=== PATIENT | male | born 1970 | race Caucasian/White ===

== ENCOUNTER → 2016-09-09 | Outpatient (CLI) | payer MEDICAID ==
[2016-09-09 11:29] LABS: Appearance,Urine Clear (Clear); Bilirubin,Urine Negative (Negative); Glucose,Urine (UA) Negative (Negative); Ketones,Urine Negative (Negative); Leukocyte Esterase,Urine Negative (Negative); Nitrite,Urine Negative (Negative); Protein,Urine Negative (Negative); Specific Gravity,Urine 1.017 (1.001-1.035); UA Billing (MACRO vs. MICRO) CHEM; Urobilinogen,Urine <2.0 mg/dL (<2.0)
[2016-09-09 11:43] LABS: Basophils % (A) 1 %; CH 32.2; CHCM 33.8; Eosinophils # (A) 0.1 k/uL (0-0.7); Eosinophils % (A) 2 %; HCT 48.6 % (39.0-53.0); HDW 2.55; Luc # (Auto) 0.14; Luc % (Auto) 4; Lymphocytes % (A) 30 %; MCH 31.4 pg (25.0-35.0); MCHC 32.9 g/dL (31.0-37.0); MCV 95.7 fL (80.0-100.0); Mean Platelet Volume 6.6; Monocytes # (A) 0.3 k/uL (0-1.0); Monocytes % (A) 10 %; Neutrophils # (A) 1.8 k/uL (1.3-7.7); Neutrophils % (A) 53 %; RBC 5.08 m/uL (4.30-5.90); RDW 13.2 % (11.5-15.5); WBC 3.4 k/uL (3.8-10.6); WBC (Perox) 3.61
[2016-09-09 11:50] LABS: ALT 52 U/L (21-72); AST 26 U/L (17-59); Alkaline Phosphatase 62 U/L (38-126); Anion Gap 10 mmol/L; Blood Urea Nitrogen 20 mg/dL (9-20); Calcium 9.9 mg/dL (8.4-10.2); Carbon Dioxide 27 mmol/L (22-30); Chloride 106 mmol/L (98-107); Cholesterol 221 mg/dL (<200); Creatine Kinase 106 U/L (55-170); Glucose 103 mg/dL (74-99); HDL Cholesterol 61 mg/dL (40-60); Non-African American GFR(MDRD) >60 (>60 ml/min/1.73 sqM); Potassium 4.6 mmol/L (3.5-5.1); Sodium 143 mmol/L (137-145); Total Bilirubin 0.9 mg/dL (0.2-1.3); Total Protein 7.8 g/dL (6.3-8.2); Triglycerides 62 mg/dL (<150); Uric Acid 5.3 mg/dL (3.5-8.5)
[2016-09-09 12:20] LABS: Prostate Specific Antigen 0.42 ng/mL (0.00-4.00)
[2016-09-09 22:18] LABS: Hemoglobin A1C 5.3 % (4.2-6.1)
== END | disposition home or self-care (01) ==
LOC: LABWHC1 10:53
PROVIDERS: ATTEND Internal Medicine
DX: E55.9 Vitamin D deficiency, unspecified (principal); I10 Essential (primary) hypertension; E78.00 Pure hypercholesterolemia, unspecified; N40.0 Benign prostatic hyperplasia without lower urinary tract symptoms
CPT/HCPCS: 36415; 80053; 80061; 81003; 82306; 82550; 83036; 84153; 84439; 84443; 84550; 85025

== ENCOUNTER 2016-11-13 11:53 | Emergency (ER) | payer MEDICAID ==
[2016-11-13 12:10] VITALS: TEMP 97.6
[2016-11-13] MEDS ORDERED: DIPH,PERTUS(ACELL)TETVAC-LF 0.5 ML VIAL IM ONE (12:23)
--- NOTE | 2016-11-13 12:47 | ED ---
Wound/Laceration HPI - General Chief Complaint: Wound/Laceration Stated Complaint: chain saw laceration Time Seen by Provider: 11/13/16 12:19 Source: patient, RN notes reviewed Mode of arrival: ambulatory Limitations: no limitations - History of Present Illness Initial Comments: Patient is a 46-year-old male presents to the emergency room for evaluation of left thigh laceration. Patient states he was using his chainsaw and it kicked back into his left thigh. Patient states he is having 1 out of 10 pain. Patient states the area was bleeding. Patient states he is mainly here to be up -to-date on his tetanus vaccine. Patient denies numbness or tingling going down his left leg. Patient states he has 2 small lacerations over his left mid thigh. Patient denies taking blood thinners. Patient denies any other injuries. - Related Data Home Medications Medication Instructions Recorded Confirmed Fish Oil/Dha/Epa [Fish Oil 1,200 1 cap PO DAILY 11/13/16 11/13/16 mg Fish Oil] Losartan [Cozaar] 25 mg PO DAILY 11/13/16 11/13/16 Allergies Allergy/AdvReac Type Severity Reaction Status Date / Time No Known Allergies Allergy Verified 11/13/16 12:40 Review of Systems ROS Statement: Those systems with pertinent positive or pertinent negative responses have been documented in the HPI. ROS Other: All systems not noted in ROS Statement are negative. Past Medical History Past Medical History: Hypertension Additional Past Medical History / Comment(s): HX OF HEMMORIODS, BLOODY STOOLS, HX OF KIDNEY STONES History of Any Multi-Drug Resistant Organisms: None Reported Additional Past Surgical History / Comment(s): LITHOTRIPSY Past Anesthesia/Blood Transfusion Reactions: No Reported Reaction Past Psychological History: No Psychological Hx Reported Smoking Status: Never smoker Past Alcohol Use History: Occasional Past Drug Use History: None Reported General Exam - General Exam Comments Initial Comments: Sitting in exam room in no acute distress. Limitations: no limitations General appearance: alert, in no apparent distress Head exam: Present: atraumatic, normocephalic, normal inspection Eye exam: Present: normal appearance ENT exam: Present: normal exam Neck exam: Present: normal inspection Respiratory exam: Present: normal lung sounds bilaterally. Absent: respiratory distress Left Knee exam: Present: laceration (2 parallel superficial lacerations over mid anterior thigh. No active bleeding.) Neurovascular tendon exam: Present: no vascular compromise. Absent: pulse deficit (2+ dorsal pedal and posterior tibial pulses), abnormal cap refill ( Capillary refill less than 2 second) Back exam: Present: normal inspection Neurological exam: Present: alert, oriented X3, CN II-XII intact, normal gait Psychiatric exam: Present: normal affect, normal mood Skin exam: Present: warm, dry. Absent: rash Course Vital Signs 11/13/16 11/13/16 12:07 13:33 Temperature 97.6 F 97.6 F Pulse Rate 88 75 Respiratory 16 20 Rate Blood Pressure 133/85 112/63 O2 Sat by Pulse 97 97 Oximetry Procedures - Laceration Laceration #1 Consent Obtained: verbal consent Indication: laceration Size (cm): 3 Description: linear Depth: simple, single layer Type of Sutures: other (DERMABOND) Patient Tolerated Procedure: well, no complications Medical Decision Making - Medical Decision Making Patient is a 46-year-old male presents to the emergency room for evaluation of left mid thigh lacerations from [facility]. Laceration area was thoroughly cleaned out and irrigated. Patient was updated on his tetanus vaccine. Lacerations repaired with Dermabond and Steri-Strips placed over. Advised patient to follow-up with his primary care provider provider for reevaluation of the area. Patient can take Tylenol or Motrin as needed for pain. Patient states she understands everything that was discussed with him. Return parameters discussed. Disposition Clinical Impression: Laceration of left thigh Disposition: HOME SELF-CARE Condition: Good Instructions: Laceration (ED), Skin Adhesive Care (ED), Steristrips (ED) Additional Instructions: Dermabond and Steri-Strips will fall off on their own in 5-10 days. After Dermabond and Steri-Strips fall off keep area clean and dry. Wash with antibacterial soap and warm water. Take Tylenol or Motrin as needed for pain. Please follow up with primary care provider for reevaluation in 24-48 hours. If any new symptom arises or symptoms worsen, return to ER as soon as possible. Referrals: Mando Duncan MD [Primary Care Provider] - 1-2 days Time of Disposition: 13:27
[2016-11-13] MEDS ORDERED: TOPICAL SKIN ADHESIVE 1 EACH AMP TOPICAL ONE (13:25)
[2016-11-13 13:34] VITALS: BP 112/63; PULSE 75; RESP 20
== END 2016-11-13 13:58 | disposition home or self-care (01) ==
LOC: EC 11:53
DX: S71.112A Laceration without foreign body, left thigh, initial encounter (principal); I10 Essential (primary) hypertension; Z23 Encounter for immunization; W31.2XXA Contact with powered woodworking and forming machines, initial encounter; Z79.899 Other long term (current) drug therapy
CPT/HCPCS: 12002; 90471; 90715; 99282

== ENCOUNTER → 2017-02-16 | Outpatient (CLI) | payer MEDICAID ==
--- NOTE | 2017-02-16 15:44 | XR ---
EXAMINATION TYPE: XR chest 2V DATE OF EXAM: 02/16/2017 HISTORY: J20.9 acute bronchitis. REFERENCE: NONE. FINDINGS: The lungs are clear. Pleural spaces are clear. Heart size is upper limits of normal. IMPRESSION: NO ACUTE INTRATHORACIC ABNORMALITY.
== END | disposition home or self-care (01) ==
LOC: RADXRMAIN 14:16
PROVIDERS: ATTEND Internal Medicine
DX: J20.9 Acute bronchitis, unspecified (principal)
CPT/HCPCS: 71020

== ENCOUNTER 2017-04-03 07:00 | Day surgery (SDC) | payer MEDICAID ==
[~2017-04-03 07:00] MED LIST: LACTATED RINGERS 1,000 ML IV SCH; LIDOCAINE 1% 20 ML VIAL (10MG/ML) FOR IV START INTRADERMA PRN
[2017-04-03 07:10] VITALS: RESP 18; TEMP 96.6
[2017-04-03] MEDS ORDERED: LACTATED RINGERS 1,000 ML IV ONE (07:21)
[2017-04-03] MEDS ORDERED: MIDAZOLAM 2 MG/2 ML VIAL ONE (07:33)
[2017-04-03] MEDS ORDERED: PROPOFOL 10 MG/ML 20 ML VIAL IV ONE (07:33)
[2017-04-03] MEDS ORDERED: fentaNYL (PF) 50 MCG/ML 2 ML AMP ONE (07:33)
--- NOTE | 2017-04-03 07:41 | P.GSHP ---
History of Present Illness H&P Date: 04/03/17 Chief Complaint: Rectal bleeding Patient had today for colonoscopy. He still is having intermittent rectal bleeding. He says it occurs about 1 time every 3 months. No significant pain. No family history of colon cancer. Past Medical History Past Medical History: Hypertension Additional Past Medical History / Comment(s): HX OF HEMMORIODS, BLOODY STOOLS. HX OF KIDNEY STONES History of Any Multi-Drug Resistant Organisms: None Reported Additional Past Surgical History / Comment(s): LITHOTRIPSY Past Anesthesia/Blood Transfusion Reactions: No Reported Reaction Past Psychological History: No Psychological Hx Reported Smoking Status: Never smoker Past Alcohol Use History: Occasional Past Drug Use History: None Reported - Past Family History Mother Family Medical History: CVA/TIA, Diabetes Mellitus Medications and Allergies Home Medications Medication Instructions Recorded Confirmed Type Fish Oil/Dha/Epa [Fish Oil 1,200 1 cap PO DAILY 11/13/16 04/01/17 History mg Fish Oil] Losartan [Cozaar] 25 mg PO QAM 11/13/16 04/01/17 History Allergies Allergy/AdvReac Type Severity Reaction Status Date / Time No Known Allergies Allergy Verified 11/13/16 12:40 Surgical - Exam Vital Signs Temp Pulse Resp BP Pulse Ox 96.6 F L 73 18 120/73 99 04/03/17 07:09 04/03/17 07:09 04/03/17 07:09 04/03/17 07:09 04/03/17 07:09 Physical exam: General: Well-developed, well-nourished HEENT: Normocephalic, sclerae nonicteric Abdomen: Nontender, nondistended Extremities: No edema Neuro: Alert and oriented Assessment and Plan (1) GI bleed Narrative/Plan: Proceed with colonoscopy at this time. Risks of bleeding and perforation were discussed. Status: Acute
--- NOTE | 2017-04-03 08:05 | P.PCN ---
Date of Procedure: 04/03/17 Preoperative Diagnosis: Postoperative Diagnosis: Procedure(s) Performed: PREOPERATIVE DIAGNOSIS: Rectal bleeding POSTOPERATIVE DIAGNOSIS: Small internal and external hemorrhoids PROCEDURE: Colonoscopy ANESTHESIA: MAC SURGEON: Armando Ramesh M.D. SPECIMENS: None ENDOSCOPIC PROCEDURE: The patient was placed on the endoscopy table in the left decubitus position. The Olympus colonoscope was inserted into the anus and passed under direct visualization to the base of the cecum. The appendiceal orifice was visualized. From that point the scope was slowly withdrawn inspecting all surfaces carefully. There were no neoplastic inflammatory or polypoid lesions throughout the cecum, ascending, transverse, descending, sigmoid and rectum. There was no diverticulosis noted. Digital rectal examination was normal. The patient was taken to the recovery room in stable condition per anesthesia guidelines. RECOMMENDATIONS: Increase fiber. Follow-up colonoscopy 5 years. Implants: Indications for Procedure: Operative Findings: Description of Procedure:
[2017-04-03 08:21] VITALS: BP 117/73; PULSE 66
== END 2017-04-03 08:47 | disposition home or self-care (01) ==
LOC: ORWHC2ENDO 07:00
PROVIDERS: ATTEND Surgery
DX: K64.8 Other hemorrhoids (principal); K64.4 Residual hemorrhoidal skin tags; Z87.442 Personal history of urinary calculi; I10 Essential (primary) hypertension; Z79.899 Other long term (current) drug therapy
CPT/HCPCS: 45378; J2250; J3010; J2704

== ENCOUNTER → 2017-11-09 | Outpatient (CLI) | payer MEDICAID ==
[2017-11-09 09:37] LABS: Appearance,Urine Clear (Clear); Bilirubin,Urine Negative (Negative); Blood,Urine Negative (Negative); Color,Urine Light Yellow; Glucose,Urine (UA) Negative (Negative); Ketones,Urine Negative (Negative); Leukocyte Esterase,Urine Negative (Negative); Nitrite,Urine Negative (Negative); Protein,Urine Negative (Negative); Specific Gravity,Urine 1.017 (1.001-1.035); Urobilinogen,Urine <2.0 mg/dL (<2.0)
[2017-11-09 09:41] LABS: Basophils % (A) 0 %; Eosinophils # (A) 0.1 k/uL (0-0.7); Eosinophils % (A) 4 %; HCT 41.2 % (39.0-53.0); HGB 13.4 gm/dL (13.0-17.5); Lymphocytes # (A) 1.4 k/uL (1.0-4.8); Lymphocytes % (A) 38 %; MCH 30.1 pg (25.0-35.0); MCHC 32.5 g/dL (31.0-37.0); MCV 92.8 fL (80.0-100.0); Mean Platelet Volume 7.3; Monocytes # (A) 0.4 k/uL (0-1.0); Monocytes % (A) 10 %; Neutrophils # (A) 1.7 k/uL (1.3-7.7); Neutrophils % (A) 46 %; Platelet Count 261 k/uL (150-450); RBC 4.44 m/uL (4.30-5.90); WBC 3.6 k/uL (3.8-10.6)
[2017-11-09 11:42] LABS: ALT 24 U/L (21-72); AST 18 U/L (17-59); Alkaline Phosphatase 63 U/L (38-126); Anion Gap 9 mmol/L; Blood Urea Nitrogen 18 mg/dL (9-20); Calcium 9.6 mg/dL (8.4-10.2); Carbon Dioxide 29 mmol/L (22-30); Chloride 105 mmol/L (98-107); Cholesterol 179 mg/dL (<200); Creatine Kinase 134 U/L (55-170); Glucose 107 mg/dL (74-99); HDL Cholesterol 64 mg/dL (40-60); LDL Cholesterol,Calculated 106 mg/dL (0-99); Magnesium 1.9 mg/dL (1.6-2.3); Potassium 4.5 mmol/L (3.5-5.1); Sodium 143 mmol/L (137-145); Total Bilirubin 0.4 mg/dL (0.2-1.3); Total Protein 7.3 g/dL (6.3-8.2); Triglycerides 44 mg/dL (<150); Uric Acid 3.7 mg/dL (3.5-8.5)
[2017-11-09 11:48] LABS: T4, Free (Free Thyroxine) 0.96 ng/dL (0.78-2.19)
[2017-11-09 12:01] LABS: Prostate Specific Antigen 0.78 ng/mL (0.00-4.00)
[2017-11-09 19:52] LABS: Hemoglobin A1C 5.4 % (4.0-6.0)
== END | disposition home or self-care (01) ==
LOC: LABWHC1 09:09
PROVIDERS: ATTEND Internal Medicine
DX: Z00.00 Encounter for general adult medical examination without abnormal findings (principal); I10 Essential (primary) hypertension; N40.0 Benign prostatic hyperplasia without lower urinary tract symptoms; E78.00 Pure hypercholesterolemia, unspecified; E55.9 Vitamin D deficiency, unspecified
CPT/HCPCS: 36415; 80053; 80061; 81003; 82306; 82550; 83036; 83735; 84153; 84439; 84443; 84550; 85025

== ENCOUNTER → 2019-08-01 | Outpatient (CLI) | payer MEDICAID ==
[2019-08-01 09:11] LABS: Appearance,Urine Clear (Clear); Bilirubin,Urine Negative (Negative); Blood,Urine Negative (Negative); Color,Urine Yellow; Glucose,Urine (UA) Negative (Negative); Ketones,Urine Negative (Negative); Leukocyte Esterase,Urine Negative (Negative); Nitrite,Urine Negative (Negative); Protein,Urine Trace (Negative); Specific Gravity,Urine 1.018 (1.001-1.035); Urobilinogen,Urine <2.0 mg/dL (<2.0)
[2019-08-01 09:27] LABS: Anisocytosis Slight; HCT 34.4 % (39.0-53.0); HGB 10.2 gm/dL (13.0-17.5); Hypochromasia Marked; MCHC 29.6 g/dL (31.0-37.0); MCV 77.6 fL (80.0-100.0); Microcytosis Slight; Platelet Count 332 k/uL (150-450); RBC 4.44 m/uL (4.30-5.90); RDW 16.8 % (11.5-15.5); WBC 2.2 k/uL (3.8-10.6)
[2019-08-01 10:26] LABS: Band Neutrophils % 1 %; Eosinophils # (M) 0.07 k/uL (0-0.7); Lymphocytes # (M) 0.46 k/uL (1.0-4.8); Monocytes # (M) 0.37 k/uL (0-1.0); Neutrophils % (M) 58 %; Nucleated Red Blood Cells 0 /100 WBC (0-0); Ovalocytes Present; Stomatocytes Present; Total Cells Counted 100
[2019-08-01 18:09] LABS: Hemoglobin A1C 5.9 % (4.0-6.0)
[2019-08-01 18:20] LABS: ALT 29 U/L (10-49); AST 21 U/L (14-35); African American GFR (CKD) 91.5 (60.0-200.0); Alkaline Phosphatase 60 U/L (41-126); BUN/Creat Ratio 13.64 Ratio (12.00-20.00); Calcium 9.6 mg/dL (8.7-10.3); Carbon Dioxide 26.8 mmol/L (21.6-31.8); Chloride 106 mmol/L (96-109); Chol/HDL Ratio 2.98; Cholesterol 179 mg/dL (0-200); Creatine Kinase 121 U/L (35-257); Globulin 2.3 g/dL (1.6-3.3); Glucose 111 mg/dL (70-110); Potassium 4.9 mmol/L (3.5-5.5); Sodium 138 mmol/L (135-145); Total Bilirubin 0.4 mg/dL (0.3-1.2); Total Protein 6.9 g/dL (6.2-8.2); Triglycerides <50.0 mg/dL (0.0-149.0); Uric Acid 4.8 mg/dL (3.7-8.7)
== END | disposition home or self-care (01) ==
LOC: LABWHC1 08:04
PROVIDERS: ATTEND Internal Medicine
DX: I10 Essential (primary) hypertension (principal); E78.2 Mixed hyperlipidemia; N40.0 Benign prostatic hyperplasia without lower urinary tract symptoms; E55.9 Vitamin D deficiency, unspecified
CPT/HCPCS: 36415; 80053; 80061; 81003; 82306; 82550; 83036; 83735; 84153; 84439; 84443; 84550; 85025

== ENCOUNTER → 2019-08-30 | Outpatient (CLI) | payer MEDICAID ==
[2019-08-30 12:32] LABS: Anisocytosis Moderate; HCT 37.6 % (39.0-53.0); HGB 11.4 gm/dL (13.0-17.5); Hypochromasia Moderate; MCHC 30.4 g/dL (31.0-37.0); MCV 82.1 fL (80.0-100.0); Mean Platelet Volume 7.3; Microcytosis Slight; Platelet Count 256 k/uL (150-450); RBC 4.57 m/uL (4.30-5.90); RDW 21.1 % (11.5-15.5)
[2019-08-30 12:38] LABS: Reticulocyte % 3.2 % (0.5-2.0)
[2019-08-30 12:49] LABS: Eosinophils # (M) 0.18 k/uL (0-0.7); Lymphocytes # (M) 1.32 k/uL (1.0-4.8); Monocytes # (M) 0.45 k/uL (0-1.0); Neutrophils # (M) 1.05 k/uL (1.3-7.7); Neutrophils % (M) 35 %; Nucleated Red Blood Cells 0 /100 WBC (0-0); Total Cells Counted 100
[2019-08-30 16:47] LABS: % Iron Saturation 22.27 (15.00-50.00); Iron 94 ug/dL (65-175); Total Iron Binding Capacity 422 ug/dL (228-460)
[2019-08-30 16:55] LABS: Ferritin 31.1 ng/mL (22.0-322.0)
[2019-08-30 17:02] LABS: Folate, Serum >24.0 ng/mL
== END | disposition home or self-care (01) ==
LOC: LABWHC1 11:36
PROVIDERS: ATTEND Internal Medicine
DX: E61.1 Iron deficiency (principal)
CPT/HCPCS: 36415; 82607; 82728; 82746; 83540; 83550; 85025; 85045

== ENCOUNTER → 2019-10-21 | Day surgery (SDC) | payer MEDICAID ==
[2019-10-20 08:28] VITALS: BMI 32.3
[~2019-10-21] MED LIST changes: +LIDOCAINE 1% 20 ML VIAL (10MG/ML) FOR IV START INTRADERMA ONE; +LIDOCAINE 1% INJ 10MG/ML (20 ML MDV) ONE; +MIDAZOLAM 2 MG/2 ML VIAL ONE; +PROPOFOL 10 MG/ML 20 ML VIAL IV ONE
[2019-10-21 12:08] VITALS: RESP 16; TEMP 97.8
--- NOTE | 2019-10-21 12:42 | P.GSHP ---
History of Present Illness H&P Date: 10/21/19 Chief Complaint: Iron deficiency anemia, screening 49-year-old male here today with diagnosis recently of anemia. No melanotic stools. Patient with history of previous upper and lower endoscopy. No family history of colon cancer. Does admit to small amount of bright red blood per rectum at times. He believes he may have hemorrhoids. No melanotic stools. No heartburn, no dysphagia. Past Medical History Past Medical History: Hypertension Additional Past Medical History / Comment(s): HX OF HEMMORIODS, hx BLOODY STOOLS, HX OF KIDNEY STONES History of Any Multi-Drug Resistant Organisms: None Reported Additional Past Surgical History / Comment(s): LITHOTRIPSY Past Anesthesia/Blood Transfusion Reactions: No Reported Reaction Smoking Status: Never smoker - Past Family History Mother Family Medical History: No Reported History Medications and Allergies Home Medications Medication Instructions Recorded Confirmed Type Losartan [Cozaar] 25 mg PO QAM 11/13/16 10/21/19 History Cholecalciferol [Vitamin D3 (25 1,000 unit PO DAILY 10/20/19 10/21/19 History Mcg = 1000 Iu)] Allergies Allergy/AdvReac Type Severity Reaction Status Date / Time No Known Allergies Allergy Verified 10/21/19 12:08 Surgical - Exam Vital Signs Temp Pulse Resp Pulse Ox 97.8 F 78 16 99 10/21/19 11:45 10/21/19 11:45 10/21/19 11:45 10/21/19 11:45 Physical exam: General: Well-developed, well-nourished HEENT: Normocephalic, sclerae nonicteric Abdomen: Nontender, nondistended Extremities: No edema Neuro: Alert and oriented Assessment and Plan (1) Iron deficiency anemia Narrative/Plan: Will proceed with upper and lower endoscopy. Current Visit: Yes Status: Acute Code(s): D50.9 - IRON DEFICIENCY ANEMIA, UNSPECIFIED SNOMED Code(s): 09166103
--- NOTE | 2019-10-21 13:05 | P.PCN ---
Date of Procedure: 10/21/19 Procedure(s) Performed: PREOPERATIVE DIAGNOSIS: Iron deficiency anemia POSTOPERATIVE DIAGNOSIS: Minimal gastritis, normal colon PROCEDURE: 1. EGD with biopsy 2. Colonoscopy ANESTHESIA: MAC SURGEON: Armando Ramesh M.D. SPECIMENS: Antrum ENDOSCOPIC PROCEDURE: The patient was on the endoscopy table in the left decubitus position. The Olympus gastroscope was inserted into the oropharynx and passed under direct visualization to the region of the third portion of the duodenum. From that point the scope was slowly withdrawn inspecting all surfaces carefully. There were no neoplastic inflammatory or polypoid lesions throughout the duodenum. The pylorus was widely patent. The stomach was carefully inspected. There was minimal gastritis present. A biopsy of the antrum took place to rule out H. pylori. Retroflexion revealed a normal hiatus. The esophagus was then carefully examined. There were no neoplastic inflammatory or polypoid lesions throughout the visualized esophagus. The patient was kept on the endoscopy table in the left decubitus position. The Olympus colonoscope was inserted into the anus and passed under direct visualization to the base of the cecum. The appendiceal orifice was visualized. From that point the scope was slowly withdrawn inspecting all surfaces care fully. There were no neoplastic inflammatory or polypoid lesions throughout the cecum, ascending, transverse, descending, sigmoid and rectum. There was no visible diverticulosis noted. Digital rectal examination was normal. The patient was taken to the recovery room in stable condition per anesthesia guidelines. RECOMMENDATIONS: Increase fiber. Follow-up colonoscopy in 10 years. Continue anemia workup.
[2019-10-21 13:29] VITALS: BP 114/67; PULSE 87
== END ==
LOC: ORWHC2ENDO 11:27
PROVIDERS: ATTEND Surgery
DX: D50.9 Iron deficiency anemia, unspecified (principal); K29.70 Gastritis, unspecified, without bleeding; I10 Essential (primary) hypertension; Z87.442 Personal history of urinary calculi; Z79.899 Other long term (current) drug therapy
CPT/HCPCS: 88305; 45378; 43239; J2250; J2001; J2704

== ENCOUNTER 2019-11-13 | Emergency (ER) | payer MEDICAID | END 2019-11-13 10:57 | disposition home or self-care (01) | CPT/HCPCS: 87502; 99284 ==

== ENCOUNTER → 2020-05-02 | Outpatient (CLI) | payer MEDICAID ==
[2020-05-02 09:02] LABS: Basophils % (A) 1 %; Eosinophils # (A) 0.1 k/uL (0-0.7); Eosinophils % (A) 5 %; HCT 30.2 % (39.0-53.0); HGB 8.7 gm/dL (13.0-17.5); Hypochromasia Marked; Lymphocytes # (A) 0.9 k/uL (1.0-4.8); Lymphocytes % (A) 34 %; MCH 22.8 pg (25.0-35.0); MCHC 28.9 g/dL (31.0-37.0); MCV 78.7 fL (80.0-100.0); Mean Platelet Volume 7.4; Monocytes # (A) 0.2 k/uL (0-1.0); Monocytes % (A) 9 %; Neutrophils # (A) 1.3 k/uL (1.3-7.7); Neutrophils % (A) 49 %; Platelet Count 362 k/uL (150-450); Poikilocytosis Slight; RBC 3.84 m/uL (4.30-5.90); WBC 2.6 k/uL (3.8-10.6)
[2020-05-02 17:48] LABS: Ferritin 1.8 ng/mL (22.0-322.0)
[2020-05-02 17:49] LABS: % Iron Saturation 3.48 (15.00-50.00); ALT 21 U/L (10-49); AST 17 U/L (14-35); African American GFR (CKD) 91.5 (60.0-200.0); Albumin/Globulin Ratio 1.84 (1.60-3.17); Alkaline Phosphatase 50 U/L (41-126); BUN/Creat Ratio 13.64 Ratio (12.00-20.00); Calcium 9.4 mg/dL (8.7-10.3); Carbon Dioxide 26.4 mmol/L (21.6-31.8); Chloride 109 mmol/L (96-109); Chol/HDL Ratio 2.98; Cholesterol 176 mg/dL (0-200); Globulin 2.5 g/dL (1.6-3.3); Glucose 108 mg/dL (70-110); Iron 17 ug/dL (65-175); Potassium 4.6 mmol/L (3.5-5.5); Prostate Specific Antigen 0.5 ng/mL (0.0-2.5); Sodium 139 mmol/L (135-145); Total Bilirubin 0.4 mg/dL (0.2-1.2); Total Iron Binding Capacity 488 ug/dL (228-460); Total Protein 7.1 g/dL (6.2-8.2); Triglycerides <50.0 mg/dL (0.0-149.0)
== END | disposition home or self-care (01) ==
LOC: LABWHC1 07:47
PROVIDERS: ATTEND Internal Medicine
DX: Z00.00 Encounter for general adult medical examination without abnormal findings (principal); E61.1 Iron deficiency; E78.2 Mixed hyperlipidemia; N40.0 Benign prostatic hyperplasia without lower urinary tract symptoms
CPT/HCPCS: 36415; 80053; 80061; 82728; 83540; 83550; 84153; 84443; 85025

== ENCOUNTER 2020-07-03 07:17 | Day surgery (SDC) | payer MEDICAID ==
[2020-06-29 10:14] VITALS: BMI 34.1
[~2020-07-03 07:17] MED LIST changes: -LIDOCAINE 1% 20 ML VIAL (10MG/ML) FOR IV START INTRADERMA ONE; -LIDOCAINE 1% 20 ML VIAL (10MG/ML) FOR IV START INTRADERMA PRN; -LIDOCAINE 1% INJ 10MG/ML (20 ML MDV) ONE; -MIDAZOLAM 2 MG/2 ML VIAL ONE; -PROPOFOL 10 MG/ML 20 ML VIAL IV ONE
[2020-07-03 08:05] VITALS: TEMP 96.8
--- NOTE | 2020-07-03 08:18 | P.GSHP ---
History of Present Illness H&P Date: 07/03/20 Chief Complaint: Iron deficiency anemia 50-year-old male known to our service. Patient underwent upper and lower endoscopy in October of this year for a diagnosis of iron deficiency anemia. That study showed minimal gastritis. Patient has been following recently with hematology. They suggested a repeat endoscopy given the persistent anemia present. Recent hemoglobin 8.7. Iron level 17. Underwent CAT scan in May that was normal. Patient previously had been seen 5 years ago or so rectal bleeding but denies rectal bleeding currently. No black stools. No anticoagulants. Past Medical History Past Medical History: Hypertension Additional Past Medical History / Comment(s): HX OF HEMMORIODS, hx BLOODY STOOLS, HX OF KIDNEY STONES History of Any Multi-Drug Resistant Organisms: None Reported Additional Past Surgical History / Comment(s): LITHOTRIPSY, colonoscopy Past Anesthesia/Blood Transfusion Reactions: No Reported Reaction Smoking Status: Never smoker - Past Family History Mother Family Medical History: No Reported History Medications and Allergies Home Medications Medication Instructions Recorded Confirmed Type Ferrous Sulfate [Feosol] 325 mg PO DAILY 06/29/20 07/03/20 History Losartan Potassium [Cozaar] 25 mg PO QAM 06/29/20 07/03/20 History Vitamin D 1 tab PO DAILY 06/29/20 07/03/20 History Allergies Allergy/AdvReac Type Severity Reaction Status Date / Time No Known Allergies Allergy Verified 07/03/20 07:58 Surgical - Exam Vital Signs Temp Pulse Resp BP Pulse Ox 96.8 F L 78 16 135/79 98 07/03/20 08:03 07/03/20 08:03 07/03/20 08:03 07/03/20 08:03 07/03/20 08:03 Physical exam: General: Well-developed, well-nourished HEENT: Normocephalic, sclerae nonicteric Abdomen: Nontender, nondistended Extremities: No edema Neuro: Alert and oriented Assessment and Plan (1) Iron deficiency anemia Narrative/Plan: Will proceed with repeat upper and lower endoscopy at this time. Current Visit: No Status: Acute Code(s): D50.9 - IRON DEFICIENCY ANEMIA, UNSPECIFIED SNOMED Code(s): 40903467
[2020-07-03] MEDS ORDERED: PROPOFOL 10 MG/ML 20 ML VIAL IV ONE (08:24)
--- NOTE | 2020-07-03 08:56 | P.PCN ---
Date of Procedure: 07/03/20 Procedure(s) Performed: PREOPERATIVE DIAGNOSIS: Anemia, iron deficiency POSTOPERATIVE DIAGNOSIS: Duodenitis, mild gastritis, mild distal esophagitis, hemorrhoids PROCEDURE: 1. EGD with biopsy 2. Colonoscopy ANESTHESIA: MAC SURGEON: Armando Ramesh M.D. SPECIMENS: Duodenum, antrum, distal esophagus ENDOSCOPIC PROCEDURE: The patient was on the endoscopy table in the left decubitus position. The Olympus gastroscope was inserted into the oropharynx and passed under direct visualization to the region of the third portion of the duodenum. From that point the scope was slowly withdrawn inspecting all surfaces carefully. There was mild duodenitis. A few small superficial erosions in the duodenal bulb were identified without any evidence of recent or active bleeding. Biopsies were taken. The pylorus was widely patent. The stomach was carefully inspected. There was minimal inflammatory changes in the stomach. Retroflexion revealed a normal hiatus. The esophagus was then carefully examined. There was a single small linear erosion at the GE junction. This was non-circumferential. This measured less than 1 cm in length. A biopsy was taken. The remainder the esophagus appeared normal. The patient was kept on the endoscopy table in the left decubitus position. The Olympus colonoscope was inserted into the anus and passed under direct visualization to the base of the cecum. The appendiceal orifice was visualized. The ileum was inspected and appeared normal. From that point the scope was slowly withdrawn inspecting all surfaces carefully. There were no neoplastic inflammatory or polypoid lesions throughout the cecum, ascending, transverse, descending, sigmoid and rectum. There was no visible diverticulosis noted. Digital rectal examination revealed small internal and external hemorrhoids without any evidence of recent or active bleeding. The patient was taken to the recovery room in stable condition per anesthesia guidelines. RECOMMENDATIONS: Patient with persistent anemia. No gross bleeding seen on today's examination. Source of bleeding could be on the basis of duodenitis or esophagitis however the degree of anemia does seem discordant with the endoscopic findings. Patient with small hemorrhoids as well and admits to seeing some bright red blood when wiping at times. Again this does not seem like it would explain the degree of anemia that is present. Will order a small bowel capsule endoscopy at this time. Patient to follow up with his sarah tologist.
[2020-07-03 09:19] VITALS: BP 120/83; PULSE 70; RESP 20
== END 2020-07-03 09:38 | disposition home or self-care (01) ==
LOC: ORWHC2ENDO 07:17
PROVIDERS: ATTEND Surgery
DX: K64.8 Other hemorrhoids (principal); K64.4 Residual hemorrhoidal skin tags; K31.89 Other diseases of stomach and duodenum; K29.51 Unspecified chronic gastritis with bleeding; K20.0 Eosinophilic esophagitis; K29.81 Duodenitis with bleeding; K26.4 Chronic or unspecified duodenal ulcer with hemorrhage; D50.9 Iron deficiency anemia, unspecified; I10 Essential (primary) hypertension; E78.5 Hyperlipidemia, unspecified; Z87.19 Personal history of other diseases of the digestive system; Z87.442 Personal history of urinary calculi; Z98.890 Other specified postprocedural states; Z79.899 Other long term (current) drug therapy
CPT/HCPCS: 88305; 45378; 43239; J2704

== ENCOUNTER → 2020-08-06 | Day surgery (SDC) | payer MEDICAID ==
[2020-08-03 09:29] VITALS: BMI 33.7
[~2020-08-06] MED LIST changes: -LACTATED RINGERS 1,000 ML IV SCH; +SIMETHICONE 40 MG/0.6 ML DROPS 2,000 MG/30 ML BOTTLE PO ONE
== END ==
LOC: ORWHC2ENDO 06:53
PROVIDERS: ATTEND Internal Medicine Gastroenterology
DX: D50.9 Iron deficiency anemia, unspecified (principal); K57.30 Diverticulosis of large intestine without perforation or abscess without bleeding; Z98.890 Other specified postprocedural states; Z87.19 Personal history of other diseases of the digestive system
CPT/HCPCS: 91110

== ENCOUNTER → 2020-10-05 | Outpatient (CLI) | payer MEDICAID ==
[2020-10-05 11:14] LABS: Appearance,Urine Clear (Clear); Bilirubin,Urine Negative (Negative); Blood,Urine Negative (Negative); Color,Urine Light Yellow; Glucose,Urine (UA) Negative (Negative); Ketones,Urine Negative (Negative); Leukocyte Esterase,Urine Negative (Negative); Nitrite,Urine Negative (Negative); PH, Urine 5.5 (5.0-8.0); Protein,Urine Negative (Negative); Specific Gravity,Urine 1.015 (1.001-1.035); Urobilinogen,Urine <2.0 mg/dL (<2.0)
[2020-10-05 15:24] LABS: Basophils # (A) 0.05 X 10*3/uL (0.00-0.10); Basophils % (A) 1.1 %; Eosinophils # (A) 0.21 X 10*3/uL (0.04-0.35); Eosinophils % (A) 4.7 %; HCT 46.4 % (39.6-50.0); HGB 15.1 g/dL (13.0-17.0); Lymphocytes # (A) 1.35 X 10*3/uL (0.90-5.00); Lymphocytes % (A) 30.2 %; MCH 31.3 pg (27.0-32.0); MCHC 32.5 g/dL (32.0-37.0); MCV 96.1 fL (80.0-97.0); Mean Platelet Volume 10.2 fL (9.5-12.2); Monocytes # (A) 0.63 X 10*3/uL (0.20-1.00); Monocytes % (A) 14.1 %; Neutrophils # (A) 2.22 X 10*3/uL (1.80-7.70); Neutrophils % (A) 49.7 %; Platelet Count 265 X 10*3/uL (140-440); RBC 4.83 X 10*6/uL (4.40-5.60); RDW 13.6 % (11.5-14.5); WBC 4.47 X 10*3/uL (4.50-10.00)
[2020-10-05 20:25] LABS: Ferritin 40.3 ng/mL (22.0-322.0)
[2020-10-05 20:42] LABS: ALT 29 U/L (10-49); AST 22 U/L (14-35); Albumin/Globulin Ratio 2.13 (1.60-3.17); Alkaline Phosphatase 66 U/L (41-126); Calcium 10.2 mg/dL (8.7-10.3); Carbon Dioxide 27.1 mmol/L (21.6-31.8); Chloride 105 mmol/L (96-109); Chol/HDL Ratio 2.92; Cholesterol 187 mg/dL (0-200); Globulin 2.4 g/dL (1.6-3.3); Glucose 101 mg/dL (70-110); Iron 111 ug/dL (65-175); Magnesium 2.2 mg/dL (1.5-2.4); Potassium 4.5 mmol/L (3.5-5.5); Prostate Specific Antigen 0.4 ng/mL (0.0-2.5); Sodium 142 mmol/L (135-145); Total Bilirubin 0.8 mg/dL (0.2-1.2); Total Iron Binding Capacity 395 ug/dL (228-460); Total Protein 7.5 g/dL (6.2-8.2); Triglycerides <50.0 mg/dL (0.0-149.0)
== END | disposition home or self-care (01) ==
LOC: LABWHC1 09:42
PROVIDERS: ATTEND Internal Medicine
DX: Z00.00 Encounter for general adult medical examination without abnormal findings (principal); D50.0 Iron deficiency anemia secondary to blood loss (chronic); I10 Essential (primary) hypertension
CPT/HCPCS: 36415; 80053; 80061; 81003; 82728; 83540; 83550; 83735; 84153; 84443; 85025

== ENCOUNTER → 2022-02-04 | Outpatient (CLI) | payer MEDICAID ==
--- NOTE | 2022-02-04 11:39 | CA ---
Transthoracic Echo Report Name: Ryan Worthy Age: 51 Gender: M : 1970 Exam Date: 02/04/2022 08:30 Exam Location: [place] [facility] Ht (in): 70 Wt (lb): 240 Ordering Physician: Mando Duncan MD Attending/Referring Phys: Track Surfacing Machine Operator Estefani Bermudez RDCS Procedure CPT: Indications: R06.00 Dyspnea Cardiac Hx: Technical Quality: Good Contrast 1: Total Dose (mL): Contrast 2: Total Dose (mL): MEASUREMENTS (Male / Female) Normal Values 2D ECHO LV Diastolic Diameter PLAX 4.7 cm 4.2 - 5.9 / 3.9 - 5.3 cm LV Systolic Diameter PLAX 3.1 cm IVS Diastolic Thickness 1.1 cm 0.6 - 1.0 / 0.6 - 0.9 cm LVPW Diastolic Thickness 1.1 cm 0.6 - 1.0 / 0.6 - 0.9 cm LV Relative Wall Thickness 0.5 RV Internal Dim ED PLAX 3.9 cm LA Systolic Diameter LX 3.9 cm 3.0 - 4.0 / 2.7 - 3.8 cm LA Volume 78.5 cm??? 18 - 58 / 22 - 52 cm??? M-MODE Aortic Root Diameter MM 3.2 cm MV E Point Septal Separation 0.5 cm AV Cusp Separation MM 2.6 cm DOPPLER AV Peak Velocity 149.3 cm/s AV Peak Gradient 8.9 mmHg MV Area PHT 3.4 cm??? Mitral E Point Velocity 100.4 cm/s Mitral A Point Velocity 87.7 cm/s Mitral E to A Ratio 1.1 MV Deceleration Time 225.2 ms MV E' Velocity 10.9 cm/s Mitral E to MV E' Ratio 9.2 TR Peak Velocity 278.7 cm/s TR Peak Gradient 31.1 mmHg Right Ventricular Systolic Press 36.1 mmHg FINDINGS Left Ventricle Left ventricular ejection fraction is estimated at 60-65 %. Left ventricular cavity size normal. Borderline left ventricular hypertrophy. Right Ventricle Moderate right ventricular dilatation. Mild pulmonary hypertension. Right Atrium Normal right atrial size. Left Atrium Moderately increased left atrial volume. Mildly increased left atrial area. No evidence for an atrial septal defect. Mitral Valve Trace to mild mitral regurgitation. Aortic Valve Trileaflet aortic valve. No aortic valve stenosis or regurgitation. Tricuspid Valve Mild tricuspid regurgitation. Pulmonic Valve Trace pulmonic regurgitation. Pericardium Normal pericardium. Aorta Normal size aortic root and proximal ascending aorta. CONCLUSIONS #1. Normal left ventricle size and function. #2. Mild to moderate right ventricle dilatation with mild pulmonary hypertension #3. Moderate Left atrial enlargement Previewed by: Dr. Mariama Zamarripa MD (Electronically Signed) Final Date: 04 February 2022 11:38
== END | disposition home or self-care (01) ==
LOC: RADECHMAIN 07:30
PROVIDERS: ATTEND Internal Medicine
DX: I27.20 Pulmonary hypertension, unspecified (principal); I51.7 Cardiomegaly
CPT/HCPCS: 93306

== ENCOUNTER → 2022-02-21 | Outpatient (CLI) | payer MEDICAID ==
--- NOTE | 2022-02-21 10:14 | CT ---
EXAMINATION TYPE: CT angio chest DATE OF EXAM: 02/21/2022 COMPARISON: None HISTORY: Pulmonary Hypertension CT DLP: 1004.6 mGycm CONTRAST: CT chest with contrast and 3D reconstruction with MIP imaging is performed without and with IV Contra st, patient injected with 100 mL of Isovue 370. Contrast-enhanced CT of the chest was performed through the course of the pulmonary arteries with camden g and mediastinal window settings submitted. 3D reconstruction with MIP imaging was also performed. PULMONARY ARTERIES: The pulmonary arteries and their major tributaries are patent. I do not see lizzy dence for sizable filling defect to suggest pulmonary embolic process. LUNGS: The lungs are clear and free of infiltrate. No evidence for atelectasis. No pulmonary nodule or mass is detected. No pleural effusion. MEDIASTINUM: Thoracic aorta is of normal caliber,however, evaluation is limited given timing of the contrast bolus. If there is concern for thoracic aortic pathology consider SHOLA. Correlate clinicall y . The heart is not enlarged. No evidence for mediastinal mass. No mediastinal lymph nodes greater than 1cm. HILAR STRUCTURES: No evidence for mass. No hilar lymph nodes greater than 1 cm. UPPER ABDOMEN: No significant abnormality is seen. IMPRESSION: 1. No evidence for Pulmonary embolism at this time.
== END | disposition home or self-care (01) ==
LOC: RADCTMAIN 08:23
PROVIDERS: ATTEND Internal Medicine
DX: I27.20 Pulmonary hypertension, unspecified (principal)
CPT/HCPCS: 71275; Q9967